=== PATIENT | female | born 1995 | race Caucasian/White ===

== ENCOUNTER 2023-08-10 16:00 | Emergency (ER) | payer BC, SELFPAY ==
[2023-08-10 16:07] VITALS: BP 150/102; PULSE 114; RESP 17; TEMP 36.4; O2SAT 100; BMI 19.7
[2023-08-10 16:38] LABS: Add Urine Microscopic? YES; Bilirubin Urine 2+ (Negative); Blood Urine 3+ (Negative); Glucose Urine UA Norm (Normal); Ketones Urine 2+ (Negative); Leukocyte Esterase Urine 2+ (Negative); Nitrate Urine Negative (Negative); Protein Urine 1+ (Negative); Urine Appearance Cloudy (CLEAR); Urine Color Yellow (Yellow); Urobilinogen Urine 1 mg/dL (Negative); pH Urine 6 (5-7)
[2023-08-10 16:40] LABS: RBC Urine 15-25 /hpf (0-2); WBC Urine >100 /hpf (0-5)
[2023-08-10 16:41] LABS: Add Urine Culture? Yes; Bacteria Urine 1+ /hpf; Mucus Urine 1+ /hpf
--- NOTE | 2023-08-10 16:49 | ED_ITS ---
HPI - Female Genitourinary General: Chief complaint: Urogenital-Female Stated complaint: urinary buring Time Seen by Provider: 08/10/23 16:03 History of Present Illness: Presents to the ER with pain burning frequency with urination. Patient says she just finished Augmentin about a week ago for urinary tract infection with this is come back with a vengeance. Patient says she is not allergic to anything. Review of Systems 2 General: Reports: 10 or more systems reviewed and unremarkable except in HPI and below Physical Exam Const: COMMON NORMALS: no acute distress, average body habitus, patient oriented x3, no limitations, healthy appearing, alert and well nourished HENMT: COMMON NORMALS: normocephalic, atraumatic, hearing grossly normal bilaterally, external ears normal, Normal external nose present, moist oral mucous membranes and oropharynx normal HEAD & SCALP: normocephalic and atraumatic NOSE: Normal external nose present EXTERNAL EAR: Yes external ears normal Neck/C-Spine: COMMON NORMALS: no JVD Chest: COMMONS NORMALS: normal inspection of the chest and normal palpation of entire chest wall Resp: COMMON NORMALS: normal respiratory effort, No retractions, No use of accessory muscles and clear to auscultation bilaterally AUSCULTATION: clear to auscultation bilaterally Cardio: COMMON NORMALS: no JVD, regular rate, regular rhythm, S1 normal heart sound present, S2 normal heart sound present, No gallops present (Cardio), No clicks present (Cardio), No murmurs present (Cardio) and No rub (Cardio) RATE: regular rate RHYTHM: regular rhythm HEART SOUNDS: S1 normal heart sound present and S2 normal heart sound present GI: COMMON NORMALS: Normal to inspection, nondistended, normoactive bowel sounds present, Soft to palpation, non-tender, No hepatosplenomegaly present and no masses PALPATION: Yes Soft to palpation and Yes No hepatosplenomegaly present Neuro: COMMON NORMALS: patient oriented x3 SENSORIUM/ORIENTATION: Yes alert Course Vital Signs: Vital signs: Vital Signs Temperature 97.5 F L 08/10/23 16:07 Pulse Rate 114 H 08/10/23 16:07 Respiratory Rate 17 08/10/23 16:07 Blood Pressure 150/102 08/10/23 16:07 Pulse Oximetry 100 08/10/23 16:07 Oxygen Delivery Me thod Room Air 08/10/23 16:07 MDM - Female Medical Decision Making Patient just finished Augmentin a week ago and has had urinary tract symptoms. Patient's has a raging UTI per UA. Patient be given Cipro here and Pyridium and a prescription for both to go home on. Differential Diagnosis Unlikely abdominal pain, acute appendicitis, calculus of kidney, constipation, diverticulitis, endometriosis, gastroenteritis, pancreatitis or small bowel obstruction Medical Records I reviewed the patient's medical records. Lab Data I reviewed the patient's lab results. Laboratory Results Urine Color Yellow (Yellow) 08/10/23 16:02 Urine Appearance Cloudy (CLEAR) A 08/10/23 16:02 Urine pH 6 (5-7) 08/10/23 16:02 Ur Specific [place] 1.020 (1.005-1.030) 08/10/23 16:02 Urine Protein 1+ (Negative) H 08/10/23 16:02 Urine Glucose (UA) Norm (Normal) 08/10/23 16:02 Urine Ketones 2+ (Negative) H 08/10/23 16:02 Urine Blood 3+ (Negative) H 08/10/23 16:02 Urine Nitrate Negative (Negative) 08/10/23 16:02 Urine Bilirubin 2+ (Negative) H 08/10/23 16:02 Urine Urobilinogen 1 mg/dL (Negative) H 08/10/23 16:02 Ur Leukocyte Esterase 2+ (Negative) H 08/10/23 16:02 Urine RBC 15-25 /hpf (0-2) H 08/10/23 16:02 Urine WBC >100 /hpf (0-5) H 08/10/23 16:02 Ur Squamous Epith Cells 5-10 /hpf (0-5) H 08/10/23 16:02 Amorphous Sediment Not Reportable 08/10/23 16:02 Urine Bacteria 1+ /hpf (NONE) H 08/10/23 16:02 Urine Mucus 1+ /hpf 08/10/23 16:02 No radiology studies performed this visit Discharge Plan Discharge Patient Disposition: Home Condition: Stable Discharge Orders: Discharge ED (Routine); Ordered 08/10/23 Ordered By: Bacilio Mendez Patient Instructions: Urinary Tract Infection in Women (ED) Activity Restrictions/Additional Instructions: Push plenty fluids, take all medication as directed. Please follow-up with family practice physician within the next 7 to 10 days for reevaluation. Coding Level of Care Code ED Sales And Customer Relations Rep for Aristides Reyna
[2023-08-10] MEDS: phenazopyridine 100 mg Tablet 200 MG PO (16:56)
[2023-08-10] MEDS: ciprofloxacin 500 mg Tablet PO (16:56)
== END 2023-08-10 16:58 | disposition home or self-care (01) ==
PROVIDERS: Emergency Provider Emergency Medicine
DX: R30.9 Painful micturition, unspecified (principal); R35.0 Frequency of micturition
CPT/HCPCS: 81001; 87077; 87086; 87186; 99283

== ENCOUNTER 2024-03-19 12:55 | Emergency (ER) | payer BC, SELFPAY ==
[2024-03-19 13:05] VITALS: BP 139/88; PULSE 93; RESP 17; TEMP 36.8; O2SAT 99; BMI 21.4
[2024-03-19 13:41] LABS: Basophils # 0.1 10^3/uL (0.0-0.1); Basophils % 0.9 %; Eosinophils # 0.2 10^3/uL (0.0-0.8); Eosinophils % 1.9 %; Hematocrit 38.1 % (36-47); Lymphocytes # 1.6 10^3/uL (0.8-4.8); Mean Corpuscular HGB Conc 33.1 g/dL (30-55); Mean Corpuscular Hemoglobin 33.4 pg (27-33); Mean Corpuscular Volume 101.1 fl (85-98); Monocytes # 0.7 10^3/uL (0.2-0.9); Monocytes % 7.7 %; Neutrophils # 6.24 10^3/uL (1.8-7.7); Neutrophils % 71.2 %; Nucleated Red Blood Cells % 0 %; Platelet Count 264 10^3/cmm (157-399); Red Blood Count 3.77 10^6/uL (3.85-5.65); Red Cell Distribution Width 15.2 % (12.1-15.1); White Blood Count 8.78 10^3/uL (3.29-11.43)
--- NOTE | 2024-03-19 13:45 | CTR_ITS ---
PROCEDURE INFORMATION: Exam: CT Abdomen And Pelvis Without Contrast Exam date and time: 03/19/2024 2:03 PM Age: 28 years old Clinical indication: Abdominal pain; Other: Groin pain; Prior surgery; Surgery date: 6+ months; Surgery type: Appy; Additional info: Flank pain TECHNIQUE: Imaging protocol: Computed tomography of the abdomen and pelvis without contrast.Axial, coronal and sagittal reformatted images were created and reviewed. Radiation optimization: All CT scans at this facility use at least one of these dose optimization techniques: automated exposure control; mA and/or kV adjustment per patient size (includes targeted exams where dose is matched to clinical indication); or iterative reconstruction. COMPARISON: No relevant prior studies available. RADIATION DOSE METRICS: Total DLP (mGy-cm): 332.4 FINDINGS: Liver: Unremarkable. Gallbladder and biliary ducts: No radiodense gallstones. No biliary ductal dilatation. Pancreas: Unremarkable. Spleen: Coarse calcified splenic granulomata. Adrenal glands: Normal. No mass. Kidneys and ureters: Nonobstructing bilateral renal calculi. No hydronephrosis. Stomach and bowel: No bowel wall thickening. No obstruction. No pneumatosis. Appendix: Status post appendectomy by history. Intraperitoneal space: No free fluid. No organized fluid collection. No free air. Vasculature: Unremarkable. No aneurysm. Lymph nodes: No pathologically enlarged lymph nodes. Urinary bladder: Mild circumferential urinary bladder wall thickening, likely secondary to underdistention. Reproductive: Unremarkable. Bones/joints: No acute osseous abnormality. Soft tissues: Small, fat containing umbilical hernia. CT/CT kidney stone 02111 IMPRESSION: 1. Mild circumferential urinary bladder wall thickening, possibly secondary to underdistention. Correlate with urinalysis to exclude cystitis. 2. Additional findings, as above.
[2024-03-19 13:46] LABS: Charge for UA Resulting for Rev
[2024-03-19 13:49] LABS: Bilirubin Urine 1+ (Negative); Blood Urine 3+ (Negative); Glucose Urine UA Negative (Normal); Ketones Urine 1+ (Negative); Leukocyte Esterase Urine Trace (Negative); Nitrate Urine Negative (Negative); Protein Urine 1+ (Negative); Specific Gravity, Urine 1.028 (1.005-1.030); Urine Appearance Clear (CLEAR); Urine Color Dark Yellow (Yellow); pH Urine 6.5 (5-7)
--- NOTE | 2024-03-19 13:49 | ED_ITS ---
HPI - Abdominal Pain 2 General: Chief Complaint: Abdominal Pain Stated Complaint: abd pain, dizziness, back pain Time Seen by Provider: 03/19/24 13:17 History of Present Illness: 28-year-old female presents emergency ro om with complaint of right-sided pelvic pain radiating up into her flank. This been ongoing intermittent.. She did recently difficulty with bladder infection she was on Cipro for nearly 2 months and then referred to urology when it did not get better. She was switched to Macrobid she has a CT and a cystoscopy scheduled. Overnight she had increasing abdominal pain and cramping to the point of bringing her to tears and causing pain radiating to her back. She had no consistent pain radiating into her lower extremities but had 1 brief episode of stinging pain that shot down her right leg but none since no difficulty with bowel or bladder control no fecal incontinence or urinary retention Associated Symptoms: Denies chills, dysuria and fever(s) Review of Systems 2 Const: Denies: fever(s) or chills Card: Denies: chest pain Resp: Denies: dyspnea GI: Denies: abdominal pain : Denies: dysuria, urinary frequency or urinary urgency Musc: Denies: neck pain or back pain Skin/Breast: Denies: rash PFSH ED 2 PFSH: Surgical History (Updated 03/19/24 @ 13:51 by Slim Combs DO) History of appendectomy Physical Exam 2 Const: GENERAL APPEARANCE: cooperative ORIENTATION/CONSCIOUSNESS: Yes awake, Yes oriented to person, Yes oriented to place and Yes oriented to time HENMT: COMMON NORMALS: normocephalic, atraumatic and hearing grossly normal bilaterally HEAD & SCALP: normocephalic and atraumatic Resp: COMMON NORMALS: normal respiratory effort, No retractions, No use of accessory muscles and clear to auscultation bilaterally AUSCULTATION: clear to auscultation bilaterally Cardio: COMMON NORMALS: regular rate, regular rhythm and No murmurs present (Cardio) RATE: regular rate RHYTHM: regular rhythm GI: COMMON NORMALS: Soft to palpation and No hepatosplenomegaly present A USCULTATION: Yes normoactive bowel sounds PALPATION: Yes Soft to palpation, No Tenderness to palpation present (GI), No Guarding due to palpation present (GI) and Yes No hepatosplenomegaly present : COMMON NORMALS: Yes no CVA tenderness BLADDER/KIDNEY EXAM: Yes no CVA tenderness Back/Pelvis: COMMON NORMALS: no CVA tenderness Extremity: COMMON NORMALS: normal to inspection, capillary refill normal, no clubbing, cyanosis or edema, no calf tenderness and no pedal edema Neuro: SENSORIUM/ORIENTATION: Yes oriented to person, Yes oriented to place and Yes oriented to time OTHER: Straight leg raising today dorsoplantar strength the lower extremities 5/5 sensation lower extremities normal Skin: COMMON NORMALS: no rashes or lesions noted GENERAL SKIN EXAM: no rashes or lesions noted Course 2 Vital Signs: Vital signs: Vital Signs Temperature 98.3 F 03/19/24 13:05 Pulse Rate 88 03/19/24 15:33 Respiratory Rate 17 03/19/24 13:05 Blood Pressure 131/80 03/19/24 15:33 Pulse Oximetry 99 03/19/24 15:33 Oxygen Delivery Me thod Room Air 03/19/24 13:05 MDM - Abdominal Pain Medical Decision Making Patient has hematuria. Her back pain seems to be more related to the SI joint. CT did not show any significant pathology. Had anticipated the possibility of a kidney stone given the amount of blood she had in her urine and the discomfort she had however there is no evidence of stone or ureteral dilation. There is mention of thickening bladder she has a cystoscopy set up for that. Recommend at this point that she continue the nitrofurantoin that she is currently on will also send her in some pain medications and Pyridium have her follow-up with Dr. Brantley as planned Lab Data 03/19/24 13:33 03/19/24 13:33 Labs/Radiology: Radiology Impressions Abdomen/Pelvis CT 03/19/24 13:45 IMPRESSION: 1. Mild circumferential urinary bladder wall thickening, possibly secondary to underdistention. Correlate with urinalysis to exclude cystitis. 2. Additional findings, as above. Laboratory Results WBC 8.78 10^3/uL (3.29-11.43) 03/19/24 13:33 RBC 3.77 10^6/uL (3.85-5.65) L 03/19/24 13:33 Hgb 12.60 g/dL (11.27-16.99) 03/19/24 13:33 Hct 38.1 % (36-47) 03/19/24 13:33 MCV 101.1 fl (85-98) H 03/19/24 13:33 MCH 33.4 pg (27-33) H 03/19/24 13:33 MCHC 33.1 g/dL (30-55) 03/19/24 13:33 RDW 15.2 % (12.1-15.1) H 03/19/24 13:33 Plt Count 264 10^3/cmm (157-399) 03/19/24 13:33 MPV 9.0 fL (7.4-10.4) 03/19/24 13:33 Neut % (Auto) 71.2 % 03/19/24 13:33 Lymph % (Auto) 18.0 % 03/19/24 13:33 [place] % (Auto) 7.7 % 03/19/24 13:33 Eos % (Auto) 1.9 % 03/19/24 13:33 Baso % (Auto) 0.9 % 03/19/24 13:33 Neut # (Auto) 6.24 10^3/uL (1.8-7.7) 03/19/24 13:33 Lymph # (Auto) 1.6 10^3/uL (0.8-4.8) 03/19/24 13:33 [place] # (Auto) 0.7 10^3/uL (0.2-0.9) 03/19/24 13:33 Eos # (Auto) 0.2 10^3/uL (0.0-0.8) 03/19/24 13:33 Baso # (Auto) 0.1 10^3/uL (0.0-0.1) 03/19/24 13:33 Nucleated RBC % (auto) 0 % 03/19/24 13:33 Nucleated RBCs # 0.0 /100WBC 03/19/24 13:33 Sodium 141 mmol/L (136-145) 03/19/24 13:33 Potassium 3.4 mmol/L (3.5-5.1) L 03/19/24 13:33 Chloride 103 mmol/L (98-107) 03/19/24 13:33 Carbon Dioxide 23 mmol/L (22-29) 03/19/24 13:33 Anion Gap 18.4 (5-19) 03/19/24 13:33 BUN 9 mg/dL (6-20) 03/19/24 13:33 Creatinine 0.7 mg/dL (0.5-0.9) 03/19/24 13:33 GFR Calculation 98.3 mL/min (90-130) 03/19/24 13:33 Glucose 122 mg/dL (65-115) H 03/19/24 13:33 Calculated Osmolality 292 mOsm/kg (285-295) 03/19/24 13:33 Calcium 9.5 mg/dL (8.5-10.5) 03/19/24 13:33 Total Bilirubin 0.9 mg/dL (0.15-1.2) 03/19/24 13:33 AST 30 U/L (0-32) 03/19/24 13:33 ALT 13 U/L (0-33) 03/19/24 13:33 Alkaline Phosphatase 60 U/L (35-105) 03/19/24 13:33 Total Protein 7.7 g/dL (6.6-8.7) 03/19/24 13:33 Albumin 4.7 g/dL (3.5-5.2) 03/19/24 13:33 Globulin 3.0 g/dL (1.3-4.6) 03/19/24 13:33 HCG, Qual Negative (Negative) 03/19/24 13:33 Urine Color Dark yellow (Yellow) A 03/19/24 13:38 Urine Appearance Clear (CLEAR) 03/19/24 13:38 Urine pH 6.5 (5-7) 03/19/24 13:38 Ur Specific [place] 1.028 (1.005-1.030) 03/19/24 13:38 Urine Protein 1+ (Negative) A 03/19/24 13:38 Urine Glucose (UA) Negative (Normal) 03/19/24 13:38 Urine Ketones 1+ (Negative) H 03/19/24 13:38 Urine Blood 3+ (Negative) A 03/19/24 13:38 Urine Nitrate Negative (Negative) 03/19/24 13:38 Urine Bilirubin 1+ (Negative) H 03/19/24 13:38 Urine Urobilinogen 1.0 mg/dL (Negative) 03/19/24 13:38 Ur Leukocyte Esterase Trace (Negative) A 03/19/24 13:38 Urine RBC >100 /hpf (0-2) H 03/19/24 13:38 Urine WBC 0-5 /hpf (0-5) 03/19/24 13:38 Ur Squamous Epith Cells 11-20 /hpf (0-5) 03/19/24 13:38 Amorphous Sediment Not Reportable 03/19/24 13:38 Urine Bacteria 1+ /hpf (NONE) H 03/19/24 13:38 Hyaline Casts 1.21 /lpf 03/19/24 13:38 All radiology interpretation(s) finalized by discharge Discharge Plan Discharge Patient Disposition: Home Clinical Impression: Hematuria Condition: Stable Prescriptions: New Pyridium 200 mg tablet 200 mg PO TID Qty: 21 0RF hydrocodone-acetaminophen 5-325 mg tablet 1 tab PO Q6H PRN (Reason: pain) Qty: 12 0RF No Action ciprofloxacin HCl 500 mg tablet 500 mg PO Q12H Qty: 14 0RF Pyridium 100 mg tablet 100 mg PO Q8H Qty: 6 0RF Discharge Orders: Discharge ED (Routine); Ordered 03/19/24 Ordered By: Slim Combs Patient Instructions: Opioid Safety, Pain Management Activity Restrictions/Additional Instructions: Thank you for choosing [facility] for your healthcare needs today. It is very important that you follow up as instructed or that you return to the Emergency Department should you have concerns or if your condition changes or worsens in any way. You were seen today for pelvic pain and discomfort. CT did not show signs of any ureteral stones is no evidence of recently passed stones there is thickening of the gallbladder wall. Urine did show mostly blood. For now continue the antibiotic you are currently prescribed. Gave you prescription for pain medications as well as bladder anesthetic. And follow-up with Dr. Brantley as planned Coding Level of Care Code ED Associate Biological Sales for Aristides Reyna
[2024-03-19 13:53] LABS: HCG, Serum Qual Negative (Negative)
[2024-03-19 13:54] LABS: Bacteria Urine 1+ /hpf; Hyaline Casts Urine 1.21 /lpf; RBC Urine >100 /hpf (0-2); WBC Urine 0-5 /hpf (0-5)
[2024-03-19 13:57] LABS: Add Urine Culture? No
[2024-03-19 13:58] LABS: Alanine Aminotransferase 13 U/L (0-33); Albumin Level 4.7 g/dL (3.5-5.2); Alkaline Phosphatase 60 U/L (35-105); Anion Gap 18.4 (5-19); Aspartate Amino Transferase 30 U/L (0-32); Blood Urea Nitrogen 9 mg/dL (6-20); Calcium 9.5 mg/dL (8.5-10.5); Carbon Dioxide 23 mmol/L (22-29); Chloride 103 mmol/L (98-107); Creatinine Clr Calc Pharmacy 102.9606; Glomerular Filtration Rate 98.3 mL/min (90-130); Glucose 122 mg/dL (65-115); Osmolality Calculated 292 mOsm/kg (285-295); Potassium 3.4 mmol/L (3.5-5.1); Sodium 141 mmol/L (136-145); Total Bilirubin 0.9 mg/dL (0.15-1.2); Total Protein 7.7 g/dL (6.6-8.7)
[2024-03-19 15:06] VITALS: BP 131/80; PULSE 88; O2SAT 99
[2024-03-19 15:33] VITALS: BP 131/80; PULSE 88; O2SAT 99
== END 2024-03-19 15:36 | disposition home or self-care (01) ==
PROVIDERS: Physician Assistant; Emergency Provider Family Medicine
DX: R31.9 Hematuria, unspecified (principal)
CPT/HCPCS: 36415; 74176; 80053; 81003; 81015; 84703; 85025; 99284